=== PATIENT | female | born 1960 | race American Indian/Alaskan Native ===

== ENCOUNTER 2020-12-26 19:43 | Emergency (ER) | payer OTHER ==
[2020-12-26 20:08] VITALS: BP 109/67
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
== END 2020-12-26 21:15 | disposition home or self-care (01) ==
LOC: ED 19:43
DX: M25.511 Pain in right shoulder (principal); M54.2 Cervicalgia; Z90.49 Acquired absence of other specified parts of digestive tract; Z98.890 Other specified postprocedural states; Z79.899 Other long term (current) drug therapy; V87.7XXA Person injured in collision between other specified motor vehicles (traffic), initial encounter; Y93.89 Activity, other specified; Y92.488 Other paved roadways as the place of occurrence of the external cause; Y99.8 Other external cause status
CPT/HCPCS: 99282